=== PATIENT | female | born 1950 | race Caucasian/White ===

== ENCOUNTER → 2016-12-01 | Outpatient (CLI) | payer BC ==
[~2016-12-01] MED LIST: BIOTIN; CALCIUM; DCS100C PO; DOXY100C2 PO; ESTROGEN REPLACEMENT; HYDR-3454 PO; NF-ESTR1.5 PO; ONDA4TAB11 PO; ONDA8TAB13 PO; POLY119P PO; ROSU10TA12 PO; TRAM50TA2 PO; VITAMINS
--- OUTSIDE RECORDS SUMMARY | 2016-12-01 08:45 | XMS REPORT | Continuity of Care Document ---
Author Author [facility] Organization [facility] Address Unknown Phone Unavailable Care Team Providers Care Log Cooker Name Role Phone Edmundo Molina PCP [phone] Source Comments Some departments are not documenting in the electronic medical record. If you do not see the information that you expected, contact Release of Information in the Health Information Management department at [phone] for further assistance in locating additional records.[facility] Active Allergies and Adverse Reactions Not on File Current Medications Not on file Active Problems Not on file Social History Tobacco Use Types Packs/Day Years Used Date Never Assessed Plan of Care Health Maintenance Due Date Last Done Comments Physical (Comprehensive) 1958 Exam Pertussis Vaccine 1962 Tetanus Vaccine 1968 Cervical Cancer Screening 1972 Breast Cancer Screening 1991 Colorectal Cancer 2001 Screening Shingles Vaccine 2011 Influenza Vaccine 07/15/2016 Results from Last 3 Months Not on file
--- NOTE | 2016-12-03 13:17 | Diagnostic Imaging Report ---
Bilateral screening mammogram. The current study was also evaluated with a Computer Aided Detection (CAD) system. INDICATION: Screening. No current complaints stated on the questionnaire. COMPARISON: 12/01/2015. FINDINGS: The breasts are composed of scattered fibroglandular densities. There are occasional punctate calcifications seen. No suspicious mass, architectural distortion, or suspicious microcalcifications noted. Allowing for technique and positional differences, no suspicious change is seen. IMPRESSION: No significant change. ACR BI-RADS Category 2: Benign findings. Result letter will be mailed to the patient. Note: At least 10% of breast cancer is not imaged by mammography. Dictated by: Dictated on workstation # [id number]
== END ==
LOC: RAD 08:42
PROVIDERS: ATTEND Obstetrics & Gynecology
DX: Z12.31 Encounter for screening mammogram for malignant neoplasm of breast (principal)

== ENCOUNTER 2017-07-05 08:14 | Emergency (ER) | payer MEDICARE, OTHER ==
[~2017-07-05] VITALS: Ht 154.9 cm; Wt 60.3 kg
[2017-07-05] MEDS ORDERED: RX-MUPIROCIN (BACTROBAN) 2% OINT 22 GM TUBE TOP STA (08:50)
[2017-07-05] MEDS ORDERED: MUPI15CR TP (08:54)
--- NOTE | 2017-07-05 08:54 | ED Upper Extremity ---
General Chief Complaint: Laceration Stated Complaint: LT ARM CUT ON DANE NAIL Nursing Triage Note: PT REPORTS SHE SCRAPED HER LEFT ARM ON A DANE NAIL THIS AM. PT HAS LARGE BANDAIDS OVER WOUND. SHE REPORTS UNKNOWN TETANUS. Nursing Sepsis Screen: No Definite Risk Source: patient History of Present Illness Time seen by provider: 08:47 Initial Comments PT STATES SHE CUT HER LEFT FOREARM ON A DANE NAIL ON SCREEN DOOR, AT 0700 THIS AM AT HOME NO BLEEDING AND HAS BANDAIDS COVERING WOUND NO OTHER INJURIES PT IS NOT UP TO DATE ON TETANUS VACCINATION PT IS RIGHT HANDED PCP: DR. BANERJEE Allergies and Home Medications Allergies Coded Allergies: Sulfa (Sulfonamide Antibiotics) (Unverified Allergy, Unknown, 08/10/10) clindamycin (Unverified Allergy, Unknown, 08/10/10) latex (Unverified Allergy, Unknown, HIVES, 07/24/14) Home Medications Doxycycline Hyclate 100 Mg Capsule, 1 EACH PO BID, #20 Prescribed by: WILL CASTILLO on 09/22/14 1813 Estropipate 1.5 Mg Tablet, 1.5 MG PO DAILY, (Reported) Mupirocin Calcium 15 Gm Cream..g., 15 GM TP BID, #22 Prescribed by: WILL CASTILLO on 07/05/17 0854 Ondansetron 4 Mg Tab.rapdis, 4 MG PO Q6H PRN for NAUSEA/VOMITING, #10 Prescribed by: RACHEL HENSON on 09/30/148 Rosuvastatin Calcium 10 Mg Tablet, 10 MG PO DAILY, (Reported) [Biotin] , (Reported) [Calcium] , (Reported) [Vitamins] , (Reported) Constitutional: no symptoms reported Musculoskeletal: see HPI Skin: see HPI Psychiatric/Neurological: No Symptoms Reported Past Sinwsdu-Vpbujr-Lwsefr Hx Patient Social History Alcohol Use: Occasionally Uses Recreational Drug Use: No Smoking Status: Never a Smoker 2nd Hand Smoke Exposure: No Recent Foreign Travel: Yes Contact w/Someone Who Travel: Yes Recent Infectious Disease Expo: No Recent Hopitalizations: No Physical Abuse: No Sexual Abuse: No Immunizations Up To Date Tetanus Booster (TDap): Unknown Date of Influenza Vaccine: Aug 28, 2014 Seasonal Allergies Seasonal Allergies: No Surgeries History of Surgeries: Yes (right shoulder/right foot surgeries) Surgeries: Gallbladder, Hysterectomy, Orthopedic Respiratory History of Respiratory Disorde: No Cardiovascular History of Cardiac Disorders: No Neurological History of Neurological Disord: No Reproductive System Hx Reproductive Disorders: No Gastrointestinal History of Gastrointestinal Di: No Musculoskeletal History of Musculoskeletal Dis: No Endocrine History of Endocrine Disorders: No Cancer History of Cancer: No Psychosocial History of Psychiatric Problem: No Suicide Risk Score: 0 Integumentary History of Skin or Integumenta: No Blood Transfusions History of Blood Disorders: No Physical Exam Vital Signs Vital Sign - Last 12Hours 07/05/17 08:44 Temp 97.2 Pulse 72 Resp 16 B/P (MAP) 132/76 Pulse Ox 98 O2 Delivery Room Air Capillary Refill : Less Than 3 Seconds General Appearance: WD/WN, no apparent distress Elbow/Forearm: normal ROM, Left, abrasions (SUPERFICIAL SKIN TEAR/SKIN AVULSION TO DORSAL ASPECT OF LEFT FOREARM--APPROXIMATELY 7 CM LONG. NO BLEEDING. MOTOR/SENSORY/VASCULAR INTACT. NO BONY TENDERNESS. ) Wrist: Yes normal inspection Hand: normal inspection Neurologic/Tendon: normal sensation, normal motor functions, normal tendon functions Neurologic/Psychiatric: probation counselor II-XII nml as tested, no motor/sensory deficits, alert, normal mood/affect, oriented x 3 Skin: normal color, warm/dry, other (SKIN TEAR/ ABRASION NOTED ABOVE) Laceration Repair : Sterile Dressing Applied?: Yes Progress/Results/Core Measures Results/Orders My Orders Orders - WILL CASTILLO DO Dipht,Pertuss(Acell),Tet Adult (Boostrix (07/05/17 09:00) Rx-Mupirocin 2% Oint (Rx-Bactroban) (07/05/17 08:50) Wound Dressing-Ed (07/05/17 08:51) Vital Signs/I&O Vital Sign - Last 12Hours 07/05/17 08:44 Temp 97.2 Pulse 72 Resp 16 B/P (MAP) 132/76 Pulse Ox 98 O2 Delivery Room Air Blood Pressure Mean: 94 Progress Note : Progress Note SKIN TEAR/AVULSION--NO REPAIR REQUIRED. Departure Impression Impression: Primary Impression: SKIN TEAR LEFT FOREARM Additional Impression: Qsjiqcsdws-ngvapoqlg-aikdcxj (DPT) vaccination administered at current visit Disposition: 01 HOME, SELF-CARE Condition: Stable Departure-Patient Inst. Referrals: LEENA BANERJEE MD (PCP/Family) Primary Care Physician Patient Instructions: Skin Abrasions (DC), Diphtheria and Tetanus Toxoids, and Acellular Pertussis Vaccine, SKIN AVULSION Add. Discharge Instructions: CLEAN WOUND TWICE A DAY WITH ANTIBACTERIAL SOAP AND WATER, APPLY ANTIBIOTIC OINTMENT AND FRESH DRESSING TWICE A DAY TYLENOL AND MOTRIN NEEDED FOR PAIN FOLLOW UP WITH DR. BANERJEE NEEDED All discharge instructions reviewed with patient and/or family. Voiced understanding. Scripts Mupirocin Calcium (Bactroban) 15 Gm Cream..g. 15 GM TP BID, #22 TUBE Prov: WILL CASTILLO DO 07/05/17 WILL CASTILLO DO Jul 05, 2017 08:54
[2017-07-05] MEDS ORDERED: TETANUS,DIPTH,PERTUSS P/F (BOOSTRIX) 0.5 ML VIAL IM ONE (09:00)
[2017-07-05 09:15] VITALS: BP 132/76
--- OUTSIDE RECORDS SUMMARY | 2017-07-05 11:12 | XMS REPORT | Clinical Summary ---
Author Author [facility] Organization [facility] Address Unknown Phone Unavailable Care Team Providers Care Talent Consultant Name Role Phone PCP Unavailable Source Comments Some departments are not documenting in the electronic medical record. If you do not see the information that you expected, contact Release of Information in the Health Information Management department at [phone] for further assistance in locating additional records.[facility] Allergies Not on File Current Medications Not on file Active Problems Not on file Social History Tobacco Use Types Packs/Day Years Used Date Never Assessed Sex Assigned at Date Recorded Not on file Last Filed Vital Signs Not on file Plan of Treatment Health Maintenance Due Date Last Done Comments HEPATITIS C SCREENING 1950 PHYSICAL (COMPREHENSIVE) 1957 EXAM PERTUSSIS VACCINE 1962 TETANUS VACCINE 1968 BREAST CANCER SCREENING 1991 COLORECTAL CANCER 2001 SCREENING SHINGLES VACCINE 2011 OSTEOPOROSIS SCREENING 2016 PREVNAR/PNEUMOVAX (#1) 2016 INFLUENZA VACCINE 07/15/2017 Results Not on filefrom Last 3 Months
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
== END 2017-07-05 09:15 | disposition home or self-care (01) ==
LOC: EDUNIT# 08:14 → ER 08:18
DX: S51.812A Laceration without foreign body of left forearm, initial encounter (principal); Z90.710 Acquired absence of both cervix and uterus; Z23 Encounter for immunization; W45.0XXA Nail entering through skin, initial encounter
CPT/HCPCS: 90471; 90715; 99284

== ENCOUNTER → 2017-12-05 | Outpatient (CLI) | payer MEDICARE, OTHER ==
[~2017-12-05] MED LIST changes: +MUPI15CR TP
--- NOTE | 2017-12-06 08:51 | Diagnostic Imaging Report ---
INDICATION: Routine screening. Comparison is made with prior exam from 12/01/2016 and 12/01/2015. The current study was also evaluated with a Computer Aided Detection (CAD) system. FINDINGS: Mild parenchymal density is noted bilaterally. The overall parenchymal pattern is stable. No dominant mass or malignant appearing microcalcifications are seen. Axillae are unremarkable. IMPRESSION: No mammographic features suspicious for malignancy are identified. ACR BI-RADS Category 1: Negative. Result letter will be mailed to the patient. Note: At least 10% of breast cancer is not imaged by mammography. Dictated by: Dictated on workstation # [id number]
== END ==
LOC: RAD 14:17
PROVIDERS: ATTEND Obstetrics & Gynecology
DX: Z12.31 Encounter for screening mammogram for malignant neoplasm of breast (principal)
CPT/HCPCS: 77067

== ENCOUNTER → 2019-01-08 | Outpatient (CLI) | payer MEDICARE, OTHER ==
--- NOTE | 2019-01-08 20:05 | Diagnostic Imaging Report ---
INDICATION: Screening. Comparison made with prior examination from 12/05/2017 back through 11/02/2012. The current study was also evaluated with a Computer Aided Detection (CAD) system. 3-D tomosynthesis was performed and reviewed. FINDINGS: There are scattered fibroglandular densities bilaterally. There is no dominant mass, spiculated lesion, or suspicious calcification identified. Skin, nipples, and axillae are unremarkable. IMPRESSION: Negative. ACR BI-RADS Category 1: Negative. Result letter will be mailed to the patient. Note: At least 10% of breast cancer is not imaged by mammography. Dictated by: Dictated on workstation # [id number]
== END ==
LOC: RAD 08:22
PROVIDERS: ATTEND Obstetrics & Gynecology
DX: Z12.31 Encounter for screening mammogram for malignant neoplasm of breast (principal)
CPT/HCPCS: 77067

== ENCOUNTER → 2019-04-02 | Outpatient (CLI) | payer MEDICARE, OTHER ==
--- NOTE | 2019-04-02 18:38 | Diagnostic Imaging Report ---
EXAMINATION: Magnetic resonance imaging of the right shoulder without contrast. DATE: April 02, 2019. COMPARISON: None. HISTORY: 68-year-old female, right shoulder pain and catching. TECHNIQUE: Magnetic Resonance Imaging sequences were performed of the shoulder without contrast. FINDINGS: ROTATOR CUFF, LIGAMENTS, TENDONS, AND MUSCLES: There is a full-thickness full width tear of the supraspinatus tendon with a fluid-filled tendon gap measuring 1.9 cm. The tear is occurring approximately 12 mm proximal to the supraspinatus tendon insertion. The tendon is retracted just medial to the superior aspect of the humeral head. There is infraspinatus tendinopathy. The teres minor tendon is intact. The subscapularis tendon is intact. There is a small amount of fluid tracking along the myotendinous junction of the infraspinatus which may relate to a tiny and otherwise occult interstitial tear of the tendon. LONG HEAD OF BICEPS: There is long head of biceps tendinopathy. The long head of biceps tendon is normally positioned within the bicipital groove. The long head of biceps tendon is not well-seen in its intra-articular segment. GLENOHUMERAL JOINT: The humeral head is well positioned relative to the glenoid. The labrum is grossly intact. There is no identified paralabral cyst. The articular cartilage is grossly intact. There is no joint effusion. ACROMIOCLAVICULAR JOINT: The acromioclavicular joint is normally aligned. The coracoclavicular and coracoacromial ligaments are intact. There are no degenerative changes of the acromioclavicular joint. BONE: There is no os acromiale. The bone marrow signal is within normal limits. Specifically, negative for fracture, osteomyelitis, osteonecrosis, or marrow replacing process. BURSAE AND SOFT TISSUES: There is fluid in the subacromial subdeltoid bursa consistent with the full-thickness rotator cuff tendon tear, bursitis, and/or recent injection. IMPRESSION: 1. Full-thickness fullwidth tear of the supraspinatus tendon occurring approximately 12 mm proximal to its humeral head attachment with a fluid-filled tendon gap of 1.9 cm with retracted tendon fibers just medial to the superior humeral head. No fatty muscle atrophy. 2. Fluid tracking along the myotendinous junction of the infraspinatus likely relating to a tiny occult interstitial tendon tear. Infraspinatus tendinopathy. 3. Intact acromioclavicular joint. 4. Grossly intact labrum and additional glenohumeral joint assessment is unremarkable. 5. No acute fracture, bone contusion, or evidence of osteonecrosis. 6. Fluid in the subacromial subdeltoid bursa compatible with the full-thickness rotator cuff tendon tear, bursitis, and/or recent injection. Dictated by: Dictated on workstation # [id number]
== END ==
LOC: RAD 15:26
PROVIDERS: ATTEND Orthopaedic Surgery
DX: M75.111 Incomplete rotator cuff tear or rupture of right shoulder, not specified as traumatic (principal)
CPT/HCPCS: 73221

== ENCOUNTER → 2020-01-09 | Outpatient (CLI) | payer MEDICARE, OTHER ==
--- NOTE | 2020-01-09 11:53 | Diagnostic Imaging Report ---
INDICATION: Routine screening. COMPARISON: Comparison is made with prior mammograms 01/08/2019 and 12/05/2017. 2-D and 3-D bilateral screening mammography was performed. The current study was also evaluated with a Computer Aided Detection (CAD) system. 3-D tomosynthesis was also performed and reviewed. FINDINGS; Scattered fibroglandular densities are identified bilaterally. The parenchymal pattern is stable. No mass or malignant-appearing microcalcifications are seen. Axillae are unremarkable. IMPRESSION: No mammographic features suspicious for malignancy are identified. ACR BI-RADS Category 1: Negative. Result letter will be mailed to the patient. Note: At least 10% of breast cancer is not imaged by mammography. Dictated by: Dictated on workstation # [id number]
== END ==
LOC: RAD 07:59
PROVIDERS: ATTEND Obstetrics & Gynecology
DX: Z12.31 Encounter for screening mammogram for malignant neoplasm of breast (principal)
CPT/HCPCS: 77067

== ENCOUNTER → 2021-01-12 | Outpatient (CLI) | payer MEDICARE, OTHER ==
--- NOTE | 2021-01-12 09:37 | Diagnostic Imaging Report ---
INDICATION: Routine screening. COMPARISON: 01/09/2020 and 01/08/2019. TECHNIQUE: 2D and 3D bilateral screening mammography was performed with CAD. FINDINGS: Scattered fibroglandular densities are identified bilaterally. The parenchymal pattern is stable. No mass or malignant appearing microcalcifications are seen. The axillae are unremarkable. IMPRESSION: No mammographic features suspicious for malignancy are identified. ACR BI-RADS Category 1: Negative. Result letter will be mailed to the patient. Note: At least 10% of breast cancer is not imaged by mammography. Dictated by: Dictated on workstation # [id number]
== END ==
LOC: RAD 07:54
PROVIDERS: ATTEND Obstetrics & Gynecology
DX: Z12.31 Encounter for screening mammogram for malignant neoplasm of breast (principal)
CPT/HCPCS: 77063; 77067

== ENCOUNTER → 2022-01-25 | Outpatient (CLI) | payer MEDICARE, OTHER ==
--- NOTE | 2022-01-25 13:23 | Diagnostic Imaging Report ---
INDICATION: Routine screening. COMPARISON: 01/12/2021 and 01/09/2020. TECHNIQUE: 2D and 3D bilateral screening mammography was performed with CAD. FINDINGS: Scattered fibroglandular densities are identified bilaterally. The parenchymal pattern is stable. No mass or malignant-appearing microcalcifications are seen. The axillae are unremarkable. IMPRESSION: No mammographic features suspicious for malignancy are identified. ACR BI-RADS Category 1: Negative. Result letter will be mailed to the patient. Note: At least 10% of breast cancer is not imaged by mammography. Dictated by: Dictated on workstation # [id number]
== END ==
LOC: RAD 08:00
PROVIDERS: ATTEND Obstetrics & Gynecology
DX: Z12.31 Encounter for screening mammogram for malignant neoplasm of breast (principal)
CPT/HCPCS: 77063; 77067

== ENCOUNTER → 2023-03-07 | Outpatient (CLI) | payer MEDICARE, OTHER ==
--- NOTE | 2023-03-07 13:31 | Diagnostic Imaging Report ---
INDICATION: Routine screening. COMPARISON: 01/25/2022 and 01/12/2021. TECHNIQUE: 2D and 3D bilateral screening mammography was performed with CAD. FINDINGS: Scattered fibroglandular densities are identified bilaterally. No mass or malignant-appearing microcalcifications are seen. The axillae are unremarkable. IMPRESSION: No mammographic features suspicious for malignancy are identified. ACR BI-RADS Category 1: Negative. Result letter will be mailed to the patient. Note: At least 10% of breast cancer is not imaged by mammography. Dictated by: Dictated on workstation # [id number]
== END ==
LOC: RAD 08:13
PROVIDERS: ATTEND Nurse Practitioner
DX: Z12.31 Encounter for screening mammogram for malignant neoplasm of breast (principal)
CPT/HCPCS: 77063; 77067